=== PATIENT | male | born 1955 | race Caucasian/White ===

== ENCOUNTER → 2016-04-15 | Outpatient (CLI) | payer OTHER | END | disposition home or self-care (01) | LOC: C.CPL 16:28 | DX: M75.122 Complete rotator cuff tear or rupture of left shoulder, not specified as traumatic (principal) ==

== ENCOUNTER 2017-04-02 16:54 | Inpatient (IN) | payer OTHER ==
[~2017-04-02] VITALS: Ht 180.3 cm; Wt 90.7 kg
[~2017-04-02 16:54] MED LIST changes: -LISI-461 PO; -OXYC-57 PO
[2017-04-02] MEDS ORDERED: OXYC-57 PO (16:58)
[2017-04-02] MEDS ORDERED: LISI-461 PO (16:58)
[2017-04-02] MEDS ORDERED: VANCOMYCIN 1GM/270ML NSS ONE (17:01)
[2017-04-02 17:06] VITALS: BP 140/87; PULSE 105; TEMP 36.8; O2SAT 100; Ht 180.3 cm; Wt 90.7 kg
[2017-04-02] MEDS ORDERED: ONDANSETRON INJ 2 MG/ML 2 ML VIAL IV PRN ×2 (17:15→19:30)
[2017-04-02] MEDS ORDERED: NALOXONE HCL 0.4 MG/1 ML VIAL/CARP IV PRN (17:15)
[2017-04-02] MEDS ORDERED: ATROPINE SULFATE 0.1 MG/ML 5ML SYR IV PRN (17:15)
[2017-04-02] MEDS ORDERED: LABETALOL HCL IV 5 MG/ML 20ML IV PRN (17:15)
[2017-04-02] MEDS ORDERED: FLUMAZENIL 0.1 MG/1 ML 10 ML VIAL IV PRN (17:15)
[2017-04-02] MEDS ORDERED: MEPERIDINE HCL 25 MG/ML CARP IV PRN (17:15)
[2017-04-02] MEDS ORDERED: PHENYLEPHRINE 100MCG/ML 5ML SYR IV PRN (17:15)
[2017-04-02] MEDS ORDERED: EpHEDrine SULFATE INJ 50 MG/ML AMP IV PRN (17:15)
[2017-04-02] MEDS ORDERED: PROPOFOL IV EMULSION 10 MG/ML 20 ML VIAL IV ONE (17:19)
[2017-04-02] MEDS ORDERED: ROCURONIUM BROMIDE 10 MG/ML 5 ML VIAL IV ONE (17:19)
[2017-04-02] MEDS ORDERED: LIDOCAINE HCL 2% 2 ML VIAL (20MG/ML) ONE (17:19)
[2017-04-02] MEDS ORDERED: FENTANYL CITRATE INJ 50 MCG/1 ML 2 ML VIAL ONE (17:20)
[2017-04-02] MEDS ORDERED: MIDAZOLAM HCL 1 MG/ML 2ML VIAL ONE (17:20)
[2017-04-02 17:36] LABS: CALCIUM 9.5 mg/dl (8.5-10.1); CREATININE 0.84 mg/dl (0.60-1.40)
[2017-04-02] MEDS ORDERED: ONDANSETRON INJ 2 MG/ML 2 ML VIAL ONE (17:36)
[2017-04-02] MEDS ORDERED: DEXAMETHASONE SOD INJ 4 MG/ML VIAL ONE (17:36)
[2017-04-02] MEDS ORDERED: VANCOMYCIN HCL 1000MG/20ML VIAL ONE (17:49)
[2017-04-02] MEDS ORDERED: BACITRACIN 50000 UNIT VIAL ONE ×2 (17:49→18:35)
[2017-04-02] MEDS ORDERED: VANCOMYCIN CONSULT ACTIVE PRN (19:30)
[2017-04-02] MEDS ORDERED: NO NSAIDS SCH (19:30)
[2017-04-02] MEDS ORDERED: MAGNESIUM HYDROXIDE SUSP 30 ML UDC PO PRN (19:30)
[2017-04-02] MEDS: FENTANYL CITRATE INJ 50 MCG/1 ML 2 ML VIAL IV PRN ×4 (19:30→19:45)
[2017-04-02] MEDS ORDERED: ALUMINUM/MAGNESIUM SUSP 30 ML UDC PO PRN (19:30)
--- NOTE | 2017-04-02 19:30 | [facility] Post Operative Brief Note ---
Immediate Operative Summary Operative Date Apr 02, 2017. Pre-Operative Diagnosis Left shoulder acute post operative infection Post-Operative Diagnosis Left shoulder acute post operative infection Procedure(s) Performed Left Shoulder Incision and Drainage; Subacromial Debridement,vancomycin antibiotic bead placement Surgeon Dr. Aren Vanegas Financial Intern Surgeon(s) none Estimated Blood Loss 20cc Findings infection in subdeltoid subacromial space with intact repair and graft Specimens Micro: (gram stain, aerobic, anaerobic) 1. Left shoulder drainage Drains 2 hemovac Anesthesia general Complication(s) None Disposition Recovery Room / PACU
[2017-04-02] MEDS: HYDROmorphone INJ 2 MG/ML SYR/VIAL IV PRN ×2 (19:50→19:55)
--- NOTE | 2017-04-02 19:53 | Anesthesiology Progress Note ---
Anesthesia Post Op Note Date & Time Apr 02, 2017 at 19:53 Vital Signs Pain Intensity: 3 Vital Signs Past 12 Hours Date Time Temp Pulse Resp B/P (MAP) Pulse Ox O2 Delivery O2 Flow Rate FiO2 04/02/17 19:40 157/100 04/02/17 19:38 88 22 100 04/02/17 19:38 88 22 04/02/17 19:37 84 19 04/02/17 19:37 85 19 100 04/02/17 19:36 139/98 04/02/17 19:32 85 17 04/02/17 19:32 83 17 100 04/02/17 19:31 146/108 04/02/17 19:27 85 144 04/02/17 19:27 85 144 100 04/02/17 19:26 135/105 04/02/17 19:22 90 24 154/97 100 04/02/17 19:22 36.7 88 20 154/97 100 Oxymask 10 04/02/17 19:22 91 24 04/02/17 17:06 36.8 105 20 140/87 100 Room Air Notes Mental Status: alert / awake / arousable, participated in evaluation Pt Amnestic to Procedure: Yes Nausea / Vomiting: adequately controlled Pain: adequately controlled Airway Patency, RR, SpO2: stable & adequate BP & HR: stable & adequate Hydration State: stable & adequate Anesthetic Complications: no major complications apparent
[2017-04-02 20:25] VITALS: BP 142/92; PULSE 86; TEMP 37.1; O2SAT 100
--- NOTE | 2017-04-02 20:31 | OPERATIVE REPORT ---
DATE OF OPERATION: 04/02/2017 INDICATION FOR PROCEDURE: The patient is a 61-year-old male who had a work related injury. He sustained a rotator cuff tear to his left shoulder. This is his third rotator cuff surgery. He has had 2 previous rotator cuff repair surgeries in the past. Ongoing pain and MRI demonstrating he had a recurrent rotator cuff tear and decision was to proceed with a arthroscopic and mini open repair of the rotator cuff using augmentation using an Arthrex human dermal skin graft. The patient was doing well until today when he was picking at his incision and pus came out of his incision. His exam demonstrated that his longitudinal incision where we did the mini open part of the repair was draining purulent bloody drainage and this was cultured in the office and the patient was scheduled for urgent incision and drainage. PREOPERATIVE DIAGNOSIS: Left shoulder acute postoperative infection status post recent rotator cuff repair approximately 10 days ago. POSTOPERATIVE DIAGNOSES: Same with infection extending into the subacromial and subdeltoid space with intact repair. PROCEDURE: Left shoulder incision, drainage, irrigation, debridement, subacromial subdeltoid infection with placement of antibiotic beads and closure over drains. SURGEON: Aren Vanegas MD. ACID FILLER: None. ANESTHESIA: General. DESCRIPTION OF THE PROCEDURE: The patient was taken to the operating room, anesthetized under general anesthetic. He was positioned on a 40 degree beach chair position with a towel roll in the medial border of his left scapula. His head was placed on a foam headrest. He had all extremities well padded. His shoulder exam demonstrated that he had erythema around his lateral incision only and there was some drainage around the upper aspect of the incision. All the other incisions were well healed. The left shoulder was then sterilely prepped using Betadine scrub and paint. He was sterilely draped. The incision was opened up and there was purulent drainage extending deep into the deltoid. There was a small rent in the upper deltoid. This was followed down into the subacromial space. We did gain access to the subacromial space and got deep culture. At this time we suctioned out the pus and fluid collection. There was very large collection of pus in the subacromial space. The old Vicryl sutures were removed from the deltoid split and the deltoid split was opened up wide. The sutures in the subcutaneous tissues were also removed. The wound was then copiously irrigated. Some fibrous debris was removed from the subacromial space. I used digital palpation to sweep the subacromial space, made sure there were no loculations of any fluid. I inspected the repair. The repair was completely intact, all anchors were intact and all sutures were intact. The graft was completely intact and could not clearly express any pus from within the joint out through the graft. The decision was to try to preserve the repair. The subacromial space was then copiously irrigated with a total of 12 liters of antibiotic solution with bacitracin. We used clean retractor to suction at the last irrigation. At this time, we did mix Stimulan antibiotic beads with vancomycin. We used 10 mL total for the mixture but we used about 6 of the 10 mL and we tried to pack them over the tendon repair medial to tendon repair under the AC joint anteriorly and posteriorly in the subdeltoid region. I did place 2 Hemovac drains and brought them posteriorly out of the joint. I placed them in subdeltoid region. I closed the deltoid with [id number] #1 Vicryl antibiotic impregnated sutures. The subcutaneous tissues were closed with 2-0 antibiotic impregnated sutures and skin was closed with 2-0 nylon vertical mattress sutures. Adaptic, sterile dressings were applied, ABDs, foam tape and the patient had about 20 mL of blood loss. He tolerated the procedure well. I attest to the content of the Intraoperative Record and any orders documented therein. Any exception s are noted below.
[2017-04-02] MEDS ORDERED: VANCOMYCIN INJ 1,000 MG in SODIUM CHLORIDE 0.9% 250ML 250 ML IV SCH (21:00)
[2017-04-02 21:03] VITALS: BP 129/85; PULSE 82; TEMP 37.1; O2SAT 98
[2017-04-02 21:25] VITALS: BP 128/86; PULSE 77; TEMP 37.1; O2SAT 97
[2017-04-02] MEDS: D5W AND 1/2NSS + 20MEQ KCL 1,000 ML IV SCH (21:31)
[2017-04-02] MEDS: DOCUSATE SODIUM 100 MG CAP PO SCH (21:31)
[2017-04-02] MEDS: VANCOMYCIN INJ 1,250 MG in SODIUM CHLORIDE 0.9% 250ML 250 ML IV SCH (21:31)
[2017-04-02] MEDS: ACETAMINOPHEN 500 MG TAB PO SCH (21:32)
[2017-04-02] MEDS: BuPROPion XL 150 MG TABCR PO SCH (21:33)
[2017-04-02] MEDS: OXYCODONE HCL IR 5 MG TAB (IMMEDIATE RELEASE) PO PRN (21:36)
[2017-04-02 22:25] VITALS: BP 120/79; PULSE 77; TEMP 37; O2SAT 97
[2017-04-02 23:22] VITALS: BP 133/82; PULSE 69; TEMP 36.8; O2SAT 98
[2017-04-03 03:41] VITALS: BP 119/78; PULSE 66; TEMP 36.7; O2SAT 99
[2017-04-03] MEDS: ACETAMINOPHEN 500 MG TAB PO SCH ×3 (05:22→21:30)
[2017-04-03] MEDS ORDERED: NURSING DECISION MEDICATION ORDER SCH (05:30)
[2017-04-03 07:17] VITALS: BP 133/86; PULSE 65; TEMP 36.6; O2SAT 98
[2017-04-03 07:24] LABS: HEMATOCRIT 35.9 % (42-52); HEMOGLOBIN 12.2 g/dL (14.0-18.0); MEAN CELL VOLUME 101.1 fL (80-100); MEAN CORPUSCULAR HEMOGLOBIN 34.4 pg (25-34); MEAN PLATELET VOLUME 10.8 fL (7.4-10.4); PLATELET COUNT 188 K/uL (130-400); RED CELL DISTRIBUTION WIDTH CV 13.3 % (11.5-14.5); RED CELL DISTRIBUTION WIDTH SD 49.7 fL (36.4-46.3); WHITE BLOOD COUNT 10.07 K/uL (4.8-10.8)
[2017-04-03 07:42] LABS: CALCIUM 9.1 mg/dl (8.5-10.1); CREATININE 0.77 mg/dl (0.60-1.40); POTASSIUM 4.5 mmol/L (3.5-5.1)
--- NOTE | 2017-04-03 08:30 | Orthopedic Progress Note ---
Orthopedic Progress Note Date of Service Apr 03, 2017. Subjective Post OP Day: 1 Reports: feeling well, pain controlled w PO medications, Denies: complaints, chest pain, SOB, nausea / vomiting, light headedness, calf pain Objective N/V intact, capillary refill less than 2 sec., dressing C/D/I, A&O x3 Sling in tact, fingers mobile. Date Time Temp Pulse Resp B/P (MAP) Pulse Ox O2 Delivery O2 Flow Rate FiO2 04/03/17 07:17 36.6 65 16 133/86 (102) 98 Room Air 04/03/17 03:41 36.7 66 16 119/78 (92) 99 Room Air 04/02/17 23:25 Room Air 04/02/17 23:22 36.8 69 18 133/82 (99) 98 Room Air 04/02/17 22:25 37.0 77 18 120/79 (93) 97 Room Air 04/02/17 21:25 37.1 77 16 128/86 (100) 97 Room Air 04/02/17 21:03 37.1 82 16 129/85 (100) 98 Nasal Cannula 2.0 04/02/17 20:25 100 Nasal Cannula 2.0 04/02/17 20:25 37.1 86 17 142/92 (109) 100 Nasal Cannula 2.0 04/02/17 20:25 100 Nasal Cannula 2.0 04/02/17 20:11 90 15 04/02/17 20:11 90 15 144/89 99 04/02/17 20:06 84 17 99 04/02/17 20:06 84 17 04/02/17 20:05 140/92 04/02/17 20:02 138/88 04/02/17 20:01 86 14 04/02/17 20:01 86 14 100 04/02/17 20:00 171/101 04/02/17 19:56 86 11 144/100 100 04/02/17 19:56 86 11 04/02/17 19:54 36.7 88 18 138/88 (100) 100 Nasal Cannula 2 04/02/17 19:52 152/102 04/02/17 19:51 89 18 04/02/17 19:51 88 18 156/106 100 04/02/17 19:46 90 19 04/02/17 19:46 88 19 147/101 100 04/02/17 19:41 85 15 04/02/17 19:41 85 15 100 04/02/17 19:40 157/100 04/02/17 19:38 88 22 100 04/02/17 19:38 88 22 04/02/17 19:37 84 19 04/02/17 19:37 85 19 100 04/02/17 19:36 139/98 04/02/17 19:32 85 17 04/02/17 19:32 83 17 100 04/02/17 19:31 146/108 04/02/17 19:27 85 144 04/02/17 19:27 85 144 100 04/02/17 19:26 135/105 04/02/17 19:22 90 24 154/97 100 04/02/17 19:22 36.7 88 20 154/97 100 Oxymask 10 04/02/17 19:22 91 24 04/02/17 17:06 36.8 105 20 140/87 100 Room Air Laboratory Results 24 Hours: Test 04/03/17 06:54 Hematocrit 35.9 % Hemoglobin 12.2 g/dL Assessment & Plan Assessment: POD #1, Left shoulder I&D subacromial and subdeltoid infection, placement of antibx beads and closure over drains...s/p open left RCR with grafting 2 wks ago. Plan: Await cultures, gram stain gram pos. cocci. ID consulted, await input...On vanco for now. Disposition - home likely w home anibx Inhouse Planning Pain Management: PO Tylenol, Oxy IR Discharge Planning Discharge Planning: home
--- NOTE | 2017-04-03 08:59 | HISTORY & PHYSICAL EXAMINATION ---
DATE OF ADMISSION: 04/02/2017 CHIEF COMPLAINT: Increased pain and drainage, left shoulder. HISTORY OF PRESENT ILLNESS: This is a 61-year-old male patient of Dr. Vanegas'ivan who recently underwent an open rotator cuff repair with placement of graft approximately 2 weeks ago. Over the past 24 hours, the patient has noticed a significant increase in pain and drainage from the incisional area. He reported the office where it was determined that this was a probable infection. He will be admitted to [facility] for an I&D of the incisional area. PAST MEDICAL HISTORY: Hypertension, anxiety, carpal tunnel, history of seizure disorder, osteoarthritis, spine problems, sciatica. SOCIAL HISTORY: He is a long-life smoker, but quit in 2004. Approximately 8 drinks per week. PAST SURGICAL HISTORY: Two rotator cuff repairs on the left shoulder, left knee surgery, and left wrist surgery. MEDICATIONS: Wellbutrin 150 mg b.i.d., lisinopril 10 mg daily, Meloxicam 15 mg daily, Percocet 5/325 1-2 tablets every 4-6 hours p.r.n. ALLERGIES: INCLUDE PENICILLIN. FAMILY HISTORY: Noncontributory. REVIEW OF SYSTEMS: Most recently increased pain and drainage from his left shoulder incisional site. Otherwise, denies any shortness of breath, chest pain, nausea, vomiting or any other joint complaints. PHYSICAL EXAMINATION: GENERAL: This is a well-developed, well-nourished 61-year-old male in no acute distress. He is alert and oriented x3 and pleasant. HEENT: Normocephalic, atraumatic. Extraocular motions are intact. Pupils are equal and reactive to light. HEART: Regular rate and rhythm, no murmurs appreciated. LUNGS: Clear. ABDOMEN: Soft and nontender. Bowel sounds are present. EXTREMITIES: Left shoulder reveals some purulent drainage from the incisional site. There is mild erythema around the area. He does have painful range of motion. Neurologically and neurovascularly, he is intact in his left upper extremity. DIAGNOSES: Probable left shoulder infection status post open rotator cuff repair with grafting approximately 2 weeks ago. He also has a history of hypertension, anxiety, carpal tunnel, seizure disorder, osteoarthritis, spine problems, sciatica. LABORATORY STUDIES: On admission white cells were 10.07. Sodium was 132. He was afebrile. PLAN: The patient will be admitted for an I&D of the left shoulder incisional area. We will continue his preadmission medications and we will follow with him for his hospital course. ID will be consulted, currently on eileen. INES
--- NOTE | 2017-04-03 09:02 | Pharmacy Progress Note ---
Pharmacy Antibiotic Consult Date of Service: Apr 03, 2017. Pharmacy Dosing Scope Pharmacy is consulted to initiate Vancomycin IV dosing therapy, order appropriate labs and adjust drug dose/frequency. Subjective The patient is a 61 year old male admitted on Apr 02, 2017 at 19:42. Objective Height (Feet): 5 Height (Inches): 11.00 Weight (Kilograms): 90.720 Lab Results (24hrs): Test 04/02/17 17:04 04/02/17 17:10 04/03/17 06:54 Sodium Level 134 mmol/L (136-145) 132 mmol/L (136-145) Potassium Level 4.0 mmol/L (3.5-5.1) 4.5 mmol/L (3.5-5.1) Chloride Level 99 mmol/L (98-107) 100 mmol/L (98-107) Carbon Dioxide Level 24 mmol/L (21-32) 26 mmol/L (21-32) Anion Gap 11.0 mmol/L (3-11) 6.0 mmol/L (3-11) Blood Urea Nitrogen 16 mg/dl (7-18) 14 mg/dl (7-18) Creatinine 0.84 mg/dl (0.60-1.40) 0.77 mg/dl (0.60-1.40) Est Creatinine Clear Calc Drug Dose 109.1 ml/min 119.0 ml/min Estimated GFR () 111.1 115.1 Estimated GFR (Non- 95.8 99.3 BUN/Creatinine Ratio 19.1 (10-20) 18.4 (10-20) Random Glucose 104 mg/dl (70-99) 155 mg/dl (70-99) Calcium Level 9.5 mg/dl (8.5-10.1) 9.1 mg/dl (8.5-10.1) Hepatitis C Antibody Screen NEG (NEG) Urine Color DK YELLOW Urine Appearance CLOUDY (CLEAR) Urine pH 5.5 (4.5-7.5) Urine Specific [place] 1.029 (1.000-1.030) Urine Protein 1+ (NEG) Urine Glucose (UA) NEG (NEG) Urine Ketones 1+ (NEG) Urine Occult Blood NEG (NEG) Urine Nitrite NEG (NEG) Urine Bilirubin NEG (NEG) Urine Urobilinogen NEG (NEG) Urine Leukocyte Esterase TRACE (NEG) Urine WBC (Auto) 1-5 /hpf (0-5) Urine RBC (Auto) 0-4 /hpf (0-4) Urine Hyaline Casts (Auto) 10-30 /lpf (0-5) Urine Epithelial Cells (Auto) 10-20 /lpf (0-5) Urine Bacteria (Auto) NEG (NEG) White Blood Count 10.07 K/uL (4.8-10.8) Red Blood Count 3.55 M/uL (4.7-6.1) Hemoglobin 12.2 g/dL (14.0-18.0) Hematocrit 35.9 % (42-52) Mean Corpuscular Volume 101.1 fL (80-100) Mean Corpuscular Hemoglobin 34.4 pg (25-34) Mean Corpuscular Hemoglobin Concent 34.0 g/dl (32-36) RDW Standard Deviation 49.7 fL (36.4-46.3) RDW Coefficient of Variation 13.3 % (11.5-14.5) Platelet Count 188 K/uL (130-400) Mean Platelet Volume 10.8 fL (7.4-10.4) Assessment & Plan Pt is a 61yo M s/p left shoulder I&D. WBC WNL and afebrile. Pt population p' kinetics: t1/2=6.8hrs, ke=0.102. Vanco regimen started by overnight pharmacist. Vanco: * Vanco 1000mg (11mg/kg) given pre-op. * Vanco 1250mg (14mg/kg) q10 * Trough ordered for 04/04/17 @ 0330 * Goal trough until NAY, c/s's result: 15-20mcg/mL Pharmacy will continue to follow and will adjust dose/frequency as necessary. Thank you
[2017-04-03] MEDS: MULTIVITAMIN TAB PO SCH (09:09)
[2017-04-03] MEDS: VANCOMYCIN INJ 1,250 MG in SODIUM CHLORIDE 0.9% 250ML 250 ML IV SCH ×2 (09:09→18:24)
[2017-04-03] MEDS: DOCUSATE SODIUM 100 MG CAP PO SCH ×2 (09:09→21:24)
[2017-04-03] MEDS: LISINOPRIL 10 MG TAB PO SCH (09:09)
[2017-04-03] MEDS: BuPROPion XL 150 MG TABCR PO SCH ×2 (09:13→21:24)
--- NOTE | 2017-04-03 10:53 | Medical Consult ---
Consultation Date of Consultation: Apr 03, 2017. Attending Physician: Aren Vanegas M.D. Reason for Consultation: Medical management of infection History of Present Illness 61-year-old male in reasonable health underwent rotator cuff repair recently without obvious complications. Patient did well until 1-2 day prior to admission when he picked a scab office shoulder and then had substantial amount of drainage from that area. He was admitted to the hospital and has now undergone debridement with finding of evidence of infection. G stain shows Gram -positive cocci, cultures are pending. Patient currently on vancomycin. He denies any significant fever or chills. No other new systemic complaints. Left shoulder pain controlled postoperatively. Past Medical/Surgical History PAST MEDICAL HISTORY: Hypertension, anxiety, carpal tunnel, history of seizure disorder, osteoarthritis, spine problems, sciatica. PAST SURGICAL HISTORY: Two rotator cuff repairs on the left shoulder, left knee surgery, and left wrist surgery. Family History Noncontributory Social History Smoking Status: Former Smoker Allergies Coded Allergies: Penicillin G (Verified Allergy, Intermediate, hives, 04/02/17) Dust (Verified Allergy, Unknown, `, 04/02/17) Current Inpatient Medications Current Inpatient Medications Medications (Trade) Dose Ordered Sig/Jennifer Route Start Time Stop Time Status Last Admin Dose Admin Diphenhydramine HCl (Benadryl Cap) 25 mg Q8 PRN PO 04/02/17 19:30 05/02/17 19:29 Ondansetron HCl (Zofran Inj) 4 mg Q6H PRN IV 04/02/17 19:30 05/02/17 19:29 Al Hydroxide/Mg Hydroxide (Maalox Susp) 30 ml Q4H PRN PO 04/02/17 19:30 05/02/17 19:29 Potassium Chloride/Dextrose/ Sod Cl 1,000 ml @ 100 mls/hr Q10H IV 04/02/17 21:00 05/02/17 20:59 04/02/17 21:31 100 MLS/HR Miscellaneous Medication (No Nsaids) 1 ea UD N/A 04/02/17 19:30 05/02/17 19:29 Oxycodone HCl (Roxicodone Immediate Rel Tab) `1-2 TABS FOR PAIN `1 TAB... Q4H PRN PO 04/02/17 19:30 04/16/17 19:29 04/02/17 21:36 10 MG Acetaminophen (Tylenol Tab) 1,000 mg Q8 PO 04/02/17 22:00 05/02/17 21:59 04/03/17 05:22 1,000 MG Magnesium Hydroxide (Milk Of Magnesia Susp) 30 ml Q6H PRN PO 04/02/17 19:30 05/02/17 19:29 Docusate Sodium (coLACE CAP) 100 mg BID PO 04/02/17 21:00 05/02/17 20:59 04/03/17 09:09 100 MG Multivitamins (Multivitamin Tab) 1 tab DAILY PO 04/03/17 09:00 05/03/17 08:59 04/03/17 09:09 1 TAB Miscellaneous Information (Consult) 1 ea UD PRN N/A 04/02/17 19:30 05/02/17 19:29 Bupropion HCl (Wellbutrin-Xl Tab) 150 mg BID PO 04/02/17 21:00 05/02/17 20:59 04/03/17 09:13 150 MG Lisinopril (Zestril Tab) 10 mg DAILY PO 04/03/17 09:00 05/03/17 08:59 04/03/17 09:09 10 MG Vancomycin HCl 1250 mg/Sodium Chloride 275 ml @ 125 mls/hr Q10H IV 04/02/17 22:00 04/12/17 21:59 04/03/17 09:09 125 MLS/HR Review of Systems All systems were reviewed and are negative except as per HPI Physical Exam Date Time Temp Pulse Resp B/P (MAP) Pulse Ox O2 Delivery O2 Flow Rate FiO2 04/03/17 07:17 36.6 65 16 133/86 (102) 98 Room Air 04/03/17 03:41 36.7 66 16 119/78 (92) 99 Room Air 04/02/17 23:25 Room Air 04/02/17 23:22 36.8 69 18 133/82 (99) 98 Room Air 04/02/17 22:25 37.0 77 18 120/79 (93) 97 Room Air 04/02/17 21:25 37.1 77 16 128/86 (100) 97 Room Air 04/02/17 21:03 37.1 82 16 129/85 (100) 98 Nasal Cannula 2.0 04/02/17 20:25 100 Nasal Cannula 2.0 18 20:25 37.1 86 17 142/92 (109) 100 Nasal Cannula 2.0 04/02/17 20:25 100 Nasal Cannula 2.0 18 20:11 90 15 18 20:11 90 15 144/89 99 18 20:06 84 17 99 18 20:06 84 17 18 20:05 140/92 18 20:02 138/88 04/02/17 20:01 86 14 18 20:01 86 14 100 04/02/17 20:00 171/101 18 19:56 86 11 144/100 100 18 19:56 86 11 18 19:54 36.7 88 18 138/88 (100) 100 Nasal Cannula 2 04/02/17 19:52 152/102 18 19:51 89 18 18 19:51 88 18 156/106 100 18 19:46 90 19 18 19:46 88 19 147/101 100 18 19:41 85 15 18 19:41 85 15 100 18 19:40 157/100 18 19:38 88 22 100 18 19:38 88 22 18 19:37 84 19 18 19:37 85 19 100 18 19:36 139/98 18 19:32 85 17 1718 19:32 83 17 100 1718 19:31 146/108 1718 19:27 85 144 1718 19:27 85 144 100 18 19:26 135/105 1718 19:22 90 24 154/97 100 1718 19:22 36.7 88 20 154/97 100 Oxymask 10 18 19:22 91 24 1718 17:06 36.8 105 20 140/87 100 Room Air General Appearance: WD/WN, no apparent distress Head: normocephalic, atraumatic Eyes: normal inspection, EOMI, sclerae normal ENT: normal ENT inspection, hearing grossly normal, pharynx normal Neck: supple, no adenopathy, thyroid normal, trachea midline Respiratory/Chest: chest non-tender, lungs clear, normal breath sounds, no respiratory distress Cardiovascular: regular rate, rhythm, no gallop, no murmur Abdomen/GI: normal bowel sounds, non tender, soft, no organomegaly Back: normal inspection, no CVA tenderness Extremities/Musculoskelatal: normal inspection, no calf tenderness, normal capillary refill Neurologic/Psych: alert, oriented x 3 Skin: normal color, warm/dry, no rash, + pertinent finding (Surgical dressing intact) Lymphatic: no adenopathy Laboratory Results Date/Time Source Procedure Growth Status 04/02/17 18:20 Drainage-Deep Shoulder, Left Gram Stain - Final Resulted 04/02/17 18:20 Drainage-Deep Shoulder, Left Bacterial Culture Pending Resulted 04/02/17 15:40 Fine Needle Aspirate Shoulder, Left Gram Stain - Final Resulted 04/02/17 15:40 Fine Needle Aspirate Shoulder, Left Bacterial Culture Pending Resulted Last 24 Hours Test 04/02/17 17:04 04/02/17 17:10 04/03/17 06:54 Sodium Level 134 mmol/L 132 mmol/L Potassium Level 4.0 mmol/L 4.5 mmol/L Chloride Level 99 mmol/L 100 mmol/L Carbon Dioxide Level 24 mmol/L 26 mmol/L Anion Gap 11.0 mmol/L 6.0 mmol/L Blood Urea Nitrogen 16 mg/dl 14 mg/dl Creatinine 0.84 mg/dl 0.77 mg/dl Est Creatinine Clear Calc Drug Dose 109.1 ml/min 119.0 ml/min Estimated GFR () 111.1 115.1 Estimated GFR (Non- 95.8 99.3 BUN/Creatinine Ratio 19.1 18.4 Random Glucose 104 mg/dl 155 mg/dl Calcium Level 9.5 mg/dl 9.1 mg/dl Hepatitis C Antibody Screen NEG Urine Color DK YELLOW Urine Appearance CLOUDY Urine pH 5.5 Urine Specific [place] 1.029 Urine Protein 1+ Urine Glucose (UA) NEG Urine Ketones 1+ Urine Occult Blood NEG Urine Nitrite NEG Urine Bilirubin NEG Urine Urobilinogen NEG Urine Leukocyte Esterase TRACE Urine WBC (Auto) 1-5 /hpf Urine RBC (Auto) 0-4 /hpf Urine Hyaline Casts (Auto) 10-30 /lpf Urine Epithelial Cells (Auto) 10-20 /lpf Urine Bacteria (Auto) NEG White Blood Count 10.07 K/uL Red Blood Count 3.55 M/uL Hemoglobin 12.2 g/dL Hematocrit 35.9 % Mean Corpuscular Volume 101.1 fL Mean Corpuscular Hemoglobin 34.4 pg Mean Corpuscular Hemoglobin Concent 34.0 g/dl RDW Standard Deviation 49.7 fL RDW Coefficient of Variation 13.3 % Platelet Count 188 K/uL Mean Platelet Volume 10.8 fL Assessment & Plan 61-year-old male with infection of left shoulder following repair of rotator cuff tear with graft placement. Vancomycin appropriate therapy given Gram- positive seen on Gram stain, and final cultures should be available in the next 24-48 hours. I suspect patient will require prolonged IV therapy. Choice of antibiotic will depend on culture results. Will follow.
[2017-04-03] MEDS: D5W AND 1/2NSS + 20MEQ KCL 1,000 ML IV SCH ×2 (11:58→23:36)
[2017-04-03 12:07] VITALS: BP 124/80; PULSE 83; TEMP 36.7; O2SAT 100
[2017-04-03 16:02] VITALS: BP 122/79; PULSE 94; TEMP 36.7; O2SAT 98
[2017-04-03] MEDS ORDERED: NURSING VERBAL MED ORDER ONE (19:00)
[2017-04-03] MEDS: ZOLPIDEM TARTRATE 5 MG TAB PO PRN (21:24)
[2017-04-03 22:55] VITALS: BP 120/77; PULSE 97; TEMP 37.3; O2SAT 99
[2017-04-03] MEDS: OXYCODONE HCL IR 5 MG TAB (IMMEDIATE RELEASE) PO PRN (23:37)
[2017-04-04] MEDS ORDERED: VANCOMYCIN TROUGH ONE (03:30)
[2017-04-04] MEDS: VANCOMYCIN INJ 1,250 MG in SODIUM CHLORIDE 0.9% 250ML 250 ML IV SCH (03:57)
[2017-04-04 04:11] LABS: HEMATOCRIT 37.9 % (42-52); HEMOGLOBIN 12.9 g/dL (14.0-18.0); MEAN CELL VOLUME 101.1 fL (80-100); MEAN CORPUSCULAR HEMOGLOBIN 34.4 pg (25-34); MEAN PLATELET VOLUME 10.5 fL (7.4-10.4); PLATELET COUNT 205 K/uL (130-400); RED CELL DISTRIBUTION WIDTH CV 13.2 % (11.5-14.5); RED CELL DISTRIBUTION WIDTH SD 49.2 fL (36.4-46.3); WHITE BLOOD COUNT 7.22 K/uL (4.8-10.8)
[2017-04-04 04:29] LABS: CALCIUM 8.9 mg/dl (8.5-10.1); CREATININE 0.95 mg/dl (0.60-1.40)
[2017-04-04] MEDS: ACETAMINOPHEN 500 MG TAB PO SCH ×3 (05:14→21:35)
[2017-04-04] MEDS ORDERED: NURSING DECISION MEDICATION ORDER SCH (05:15)
[2017-04-04 07:07] VITALS: BP 129/80; PULSE 85; TEMP 37.2; O2SAT 97
--- NOTE | 2017-04-04 08:15 | Progress Note ---
Orthopedic SOAP Note Subjective Date of Service: Apr 04, 2017. Reports: feeling well, pain controlled w PO medications Objective incision still with some erythema but improved,minimal drainage Date Time Temp Pulse Resp B/P (MAP) Pulse Ox O2 Delivery O2 Flow Rate FiO2 04/04/17 07:07 37.2 85 18 129/80 (96) 97 Room Air 04/03/17 23:35 Room Air 04/03/17 22:55 37.3 97 16 120/77 (91) 99 Room Air 04/03/17 21:04 Room Air 04/03/17 16:02 36.7 94 18 122/79 (93) 98 Room Air 04/03/17 12:07 36.7 83 16 124/80 (95) 100 Room Air 04/03/17 11:19 Room Air Laboratory Results 24 Hours: Test 04/04/17 03:59 Hematocrit 37.9 % Hemoglobin 12.9 g/dL Assessment POD #2, Left shoulder I&D subacromial and subdeltoid infection, placement of antibx beads and closure over drains...s/p open left RCR with grafting 2 wks ago.staph aureus angel sensitive Plan On vanco for now.abx choice per id but will need 6 weeks iv abx.and possibly suppressive antibiotics for total of 6 months until rotator cuff heals. Disposition - home likely w home anibx
[2017-04-04] MEDS: DOCUSATE SODIUM 100 MG CAP PO SCH ×2 (11:55→20:40)
[2017-04-04] MEDS: LISINOPRIL 10 MG TAB PO SCH (11:55)
[2017-04-04] MEDS: MULTIVITAMIN TAB PO SCH (11:55)
[2017-04-04] MEDS: BuPROPion XL 150 MG TABCR PO SCH ×2 (11:55→20:40)
[2017-04-04] MEDS ORDERED: VANCOMYCIN INJ 1,250 MG in SODIUM CHLORIDE 0.9% 250ML 250 ML IV SCH (12:00)
--- NOTE | 2017-04-04 14:17 | Infectious Disease Progress Nt ---
Progress Note Date of Service Apr 04, 2017. Subjective Pt evaluation today including: conversation w/ patient, physical exam, chart review, lab review, review of studies, conversation w/ regulatory consultant, review of inpatient medication list Patient feeling better. Offers no new complaints. Remains afebrile. All cultures growing methicillin sensitive Staph aureus. All Other Systems: Reviewed and Negative Medications Current Inpatient Medications Medications (Trade) Dose Ordered Sig/Jennifer Route Start Time Stop Time Status Last Admin Dose Admin Diphenhydramine HCl (Benadryl Cap) 25 mg Q8 PRN PO 04/02/17 19:30 05/02/17 19:29 Ondansetron HCl (Zofran Inj) 4 mg Q6H PRN IV 04/02/17 19:30 05/02/17 19:29 Al Hydroxide/Mg Hydroxide (Maalox Susp) 30 ml Q4H PRN PO 04/02/17 19:30 05/02/17 19:29 Potassium Chloride/Dextrose/ Sod Cl 1,000 ml @ 100 mls/hr Q10H IV 04/02/17 21:00 05/02/17 20:59 04/03/17 23:36 100 MLS/HR Miscellaneous Medication (No Nsaids) 1 ea UD N/A 04/02/17 19:30 05/02/17 19:29 Oxycodone HCl (Roxicodone Immediate Rel Tab) `1-2 TABS FOR PAIN `1 TAB... Q4H PRN PO 04/02/17 19:30 04/16/17 19:29 04/03/17 23:37 10 MG Acetaminophen (Tylenol Tab) 1,000 mg Q8 PO 04/02/17 22:00 05/02/17 21:59 04/04/17 05:14 1,000 MG Magnesium Hydroxide (Milk Of Magnesia Susp) 30 ml Q6H PRN PO 04/02/17 19:30 05/02/17 19:29 Docusate Sodium (coLACE CAP) 100 mg BID PO 04/02/17 21:00 05/02/17 20:59 04/04/17 11:55 100 MG Multivitamins (Multivitamin Tab) 1 tab DAILY PO 04/03/17 09:00 05/03/17 08:59 04/04/17 11:55 1 TAB Miscellaneous Information (Consult) 1 ea UD PRN N/A 04/02/17 19:30 05/02/17 19:29 Bupropion HCl (Wellbutrin-Xl Tab) 150 mg BID PO 04/02/17 21:00 05/02/17 20:59 04/04/17 11:55 150 MG Lisinopril (Zestril Tab) 10 mg DAILY PO 04/03/17 09:00 05/03/17 08:59 04/04/17 11:55 10 MG Zolpidem Tartrate (Ambien Tab) 5 mg HSZ PRN PO 04/03/17 19:15 05/03/17 19:14 04/03/17 21:24 5 MG Vancomycin HCl 1250 mg/Sodium Chloride 275 ml @ 125 mls/hr Q8H IV 04/04/17 12:00 04/12/17 15:59 04/04/17 12:00 125 MLS/HR Heparin Sodium (Porcine) (Heparin 10 Unit/ ml 5 ml Flush) 5 ml PRN PRN FLUSH 04/04/17 13:15 05/04/17 13:14 Objective Vital Signs Date Time Temp Pulse Resp B/P (MAP) Pulse Ox O2 Delivery O2 Flow Rate FiO2 04/04/17 08:05 Room Air 04/04/17 07:07 37.2 85 18 129/80 (96) 97 Room Air 04/03/17 23:35 Room Air 04/03/17 22:55 37.3 97 16 120/77 (91) 99 Room Air 04/03/17 21:04 Room Air 04/03/17 16:02 36.7 94 18 122/79 (93) 98 Room Air Physical Exam General Appearance: WD/WN, no apparent distress Eyes: normal inspection, sclerae normal ENT: normal ENT inspection, pharynx normal Neck: supple, no adenopathy, trachea midline Respiratory/Chest: chest non-tender, lungs clear, normal breath sounds, no respiratory distress Cardiovascular: regular rate, rhythm, no gallop, no murmur Abdomen: normal bowel sounds, non tender, soft, no organomegaly Extremities: non-tender, no calf tenderness Neurologic/Psychiatric: alert, oriented x 3 Skin: normal color, no rash, + pertinent finding (Left shoulder dressing intact ) Lymphatic: no adenopathy Laboratory Results RUN DATE: 04/04/17 [facility] LAB PAGE 1 RUN TIME: 1242 Specimen Inquiry PATIENT: ARGENIS BROWN LOC: [facility] U # : [id number] AGE/SX: 61/M ROOM: [facility] REG : 04/02/[address]: Aren Vanegas M.D. : 1955 BED: 1 DIS : STATUS: ADM IN TLOC: SPEC #: [id number] GISELA: 04/02/17 STATUS: RES REQ #: [id number] RECD: 04/02/[address]: Aren Vanegas M.D. SOURCE: DRAIN-DEEP ENTR: 04/02/[address]: River Lopez III, M.D. SPDESC: SHOULDER,L ORDERED: AER/CARLY CULTSMR Procedure Result Verified Site GRAM STAIN Final 04/03/17-6275 RESULT MANY POLYS FEW GRAM POSITIVE COCCI OR AER/CARLY CULT Preliminary 04/04/17-1242 Organism 1 STAPHYLOCOCCUS AUREUS QUANITY MANY SENS SENSITIVITY TO FOLLOW 1. STAPHYLOCOCCUS AUREUS Target Route Dose RX AB Cost M.I.C. IQ ------ ----- ------ -- ------ -------- - ------ TRIMET/SULFA S <=0.5/ 9.5 * OXACILLIN S 0.5 VANCOMYCIN S 2 ERYTHROMYCIN S <=0.5 TETRACYCLINE S <=4 CLINDAMYCIN S <=0.5 DAPTOMYCIN S 1 S = SENSITIVE I = INTERMEDIATE R = RESISTANT Last 24 Hours Test 04/04/17 03:59 White Blood Count 7.22 K/uL Red Blood Count 3.75 M/uL Hemoglobin 12.9 g/dL Hematocrit 37.9 % Mean Corpuscular Volume 101.1 fL Mean Corpuscular Hemoglobin 34.4 pg Mean Corpuscular Hemoglobin Concent 34.0 g/dl RDW Standard Deviation 49.2 fL RDW Coefficient of Variation 13.2 % Platelet Count 205 K/uL Mean Platelet Volume 10.5 fL Sodium Level 133 mmol/L Potassium Level 4.0 mmol/L Chloride Level 99 mmol/L Carbon Dioxide Level 28 mmol/L Anion Gap 6.0 mmol/L Blood Urea Nitrogen 12 mg/dl Creatinine 0.95 mg/dl Est Creatinine Clear Calc Drug Dose 96.4 ml/min Estimated GFR () 101.1 Estimated GFR (Non- 87.3 BUN/Creatinine Ratio 12.1 Random Glucose 104 mg/dl Calcium Level 8.9 mg/dl Vancomycin Level Trough 11.0 mcg/ml Assessment and Plan 61-year-old male with infection of left shoulder following repair of rotator cuff tear with graft placement with cultures all growing methicillin sensitive Staph aureus. Given penicillin allergy, vancomycin appropriate for now, would consider use of daptomycin 6 milligrams/kilogram daily to allow easier outpatient therapy. Will likely need in the range of 6 weeks of IV antibiotics. Will follow.
--- NOTE | 2017-04-04 14:18 | Pharmacy Progress Note ---
Pharmacy Abx Dose Short Note Date of Service Apr 04, 2017. Assessment & Plan Assessment * 61 year old male receiving IV Vancomycin for treatment of L shoulder infection * Day #3 of antimicrobial therapy. * Needle aspirate and deep drainage cultures are all growing MSSA. * Patient has been afebrile, WBC 10.1-->7.2 * Vanc level was obtained this am (11.0mcg/mL) and was slightly subtherapeutic Plan Vancomycin * Change to Vancomycin 1250 mg IV every 8 hours * Goal trough level for SSTI, vanc NAY 2: 15 to 20 mcg/mL * Trough level ordered for: 04/05 prior to the dose due at 1200 * Would recommend de-escalation of abx therapy, in light of cx results, but will defer to ID service for abx selection. Pharmacy will continue to follow and will adjust dose/frequency as necessary. Thank you.
[2017-04-04 15:27] VITALS: BP 116/80; PULSE 90; TEMP 36.8; O2SAT 97
[2017-04-04] MEDS ORDERED: DAPT500I IV (16:18)
[2017-04-04] MEDS: D5W AND 1/2NSS + 20MEQ KCL 1,000 ML IV SCH (17:03)
[2017-04-04] MEDS ORDERED: NURSING VERBAL MED ORDER ONE ×2 (18:00→20:45)
[2017-04-04] MEDS: DAPTOmycin IV 550 MG in SYRINGE 0 ML IV SCH (18:06)
[2017-04-04] MEDS: ZOLPIDEM TARTRATE 5 MG TAB PO PRN (20:43)
[2017-04-04 23:02] VITALS: BP 105/71; PULSE 91; TEMP 37; O2SAT 97
[2017-04-04 23:55] VITALS: O2SAT 97
[2017-04-05] MEDS: ACETAMINOPHEN 500 MG TAB PO SCH ×3 (05:46→21:17)
[2017-04-05 07:03] VITALS: BP 125/84; PULSE 80; TEMP 36.9; O2SAT 97
[2017-04-05 07:54] VITALS: O2SAT 97
[2017-04-05] MEDS: DOCUSATE SODIUM 100 MG CAP PO SCH ×2 (08:29→21:16)
[2017-04-05] MEDS: OXYCODONE HCL IR 5 MG TAB (IMMEDIATE RELEASE) PO PRN (08:29)
[2017-04-05] MEDS: MULTIVITAMIN TAB PO SCH (08:29)
[2017-04-05] MEDS: BuPROPion XL 150 MG TABCR PO SCH ×2 (08:30→21:16)
[2017-04-05] MEDS: LISINOPRIL 10 MG TAB PO SCH (08:30)
[2017-04-05] MEDS ORDERED: DAPTOmycin IV 550 MG in SODIUM CHLORIDE 0.9% 50ML 50 ML IV SCH (09:00)
--- NOTE | 2017-04-05 09:19 | Orthopedic Progress Note ---
Orthopedic Progress Note Date of Service Apr 05, 2017. Subjective Post OP Day: 3 Reports: feeling well Objective N/V intact, dressing C/D/I (Per pt and nurse, pt had a moderate amount of purulent drainage on dressing when changed earlier this AM) Date Time Temp Pulse Resp B/P (MAP) Pulse Ox O2 Delivery O2 Flow Rate FiO2 04/05/17 07:03 36.9 80 19 125/84 (98) 97 Room Air 04/04/17 23:55 97 Room Air 04/04/17 23:02 37.0 91 18 105/71 (82) 97 Room Air 04/04/17 15:30 Room Air 04/04/17 15:27 36.8 90 18 116/80 (92) 97 Room Air Assessment & Plan Assessment: POD #, Left shoulder I&D subacromial and subdeltoid infection, placement of antibx beads and closure over drains...s/p open left RCR with grafting 2 wks ago.staph aureus angel sensitive Plan: On Daptomycin, will need 6 weeks iv abx.and possibly suppressive antibiotics for total of 6 months until rotator cuff heals. Disposition - home w/ IV abx, possibly tomorrow pending eval of wound drainage Attending Addendum: I have seen and examined the patient, and agree with SUMMER Sheppard's assessment and plan. Dressings changed on evening rounds, still with significant expressible purulent drainage. Plan for repeat I&D tomorrow. NPO for surgery. Avni Kraft MD Orthopaedic Surgery Inhouse Planning Pain Management: PO Tylenol, Oxy IR Discharge Planning Discharge Planning: home
[2017-04-05] MEDS ORDERED: VANCOMYCIN TROUGH ONE (11:30)
[2017-04-05 15:13] VITALS: BP 145/89; PULSE 97; TEMP 36.9; O2SAT 97
[2017-04-05] MEDS: DAPTOmycin IV 550 MG in SYRINGE 0 ML IV SCH (18:14)
[2017-04-05] MEDS: ZOLPIDEM TARTRATE 5 MG TAB PO PRN (21:20)
[2017-04-05 23:12] VITALS: BP 123/79; PULSE 82; TEMP 37; O2SAT 97
[2017-04-05 23:22] VITALS: O2SAT 97
[2017-04-06] VITALS (10 sets, daily range): BP systolic 92–131; BP diastolic 62–89; PULSE 84–104; TEMP 36.4–36.9; O2SAT 96–99
[2017-04-06] MEDS: ACETAMINOPHEN 500 MG TAB PO SCH ×3 (05:40→21:49)
[2017-04-06] MEDS: MULTIVITAMIN TAB PO SCH (08:19)
[2017-04-06] MEDS: DOCUSATE SODIUM 100 MG CAP PO SCH ×2 (08:19→21:49)
[2017-04-06] MEDS: LISINOPRIL 10 MG TAB PO SCH (08:19)
[2017-04-06] MEDS: BuPROPion XL 150 MG TABCR PO SCH ×2 (08:19→21:48)
[2017-04-06] MEDS ORDERED: MEPERIDINE HCL 25 MG/ML CARP IV PRN (10:45)
[2017-04-06] MEDS ORDERED: EpHEDrine SULFATE INJ 50 MG/ML AMP IV PRN (10:45)
[2017-04-06] MEDS ORDERED: LABETALOL HCL IV 5 MG/ML 20ML IV PRN (10:45)
[2017-04-06] MEDS ORDERED: ATROPINE SULFATE 0.1 MG/ML 5ML SYR IV PRN (10:45)
[2017-04-06] MEDS ORDERED: ONDANSETRON INJ 2 MG/ML 2 ML VIAL IV PRN (10:45)
[2017-04-06] MEDS ORDERED: HYDROmorphone INJ 1 MG/ML SYR IV PRN (10:45)
[2017-04-06] MEDS ORDERED: FENTANYL CITRATE INJ 50 MCG/1 ML 2 ML VIAL IV PRN (10:45)
[2017-04-06] MEDS ORDERED: MIDAZOLAM HCL 1 MG/ML 2ML VIAL ONE (14:22)
[2017-04-06] MEDS ORDERED: FENTANYL CITRATE INJ 50 MCG/1 ML 2 ML VIAL ONE ×3 (14:22→16:45)
[2017-04-06] MEDS ORDERED: BACITRACIN 50000 UNIT VIAL ONE (14:23)
--- NOTE | 2017-04-06 14:37 | History & Physical Bridge Note ---
H&P Re-Evaluation Bridge Note: I have examined the patient, reviewed the History & Physical and in the interval since the performance of the History & Physical I have noted the following changes of clinical significance: No changes noted
[2017-04-06] MEDS ORDERED: LIDOCAINE HCL 2% 2 ML VIAL (20MG/ML) ONE (15:03)
[2017-04-06] MEDS ORDERED: PROPOFOL IV EMULSION 10 MG/ML 20 ML VIAL IV ONE (15:03)
[2017-04-06] MEDS ORDERED: ONDANSETRON INJ 2 MG/ML 2 ML VIAL ONE (15:03)
[2017-04-06] MEDS ORDERED: PHENYLEPHRINE HCL INJ 10 MG/ML VIAL ONE (15:05)
[2017-04-06] MEDS ORDERED: HYDROmorphone INJ 2 MG/ML SYR/VIAL ONE (15:53)
--- NOTE | 2017-04-06 17:03 | [facility] Operative Report ---
Operative Report Operative Date Apr 06, 2017. Pre-Operative Diagnosis Left Shoulder Post Operative Infection Post-Operative Diagnosis Same Procedure(s) Performed 1. Irrigation and debridement of left shoulder postoperative infection, including skin, deep fascia, and muscle (20400) 2. Deep hardware removal (23602) Surgeon Dr. Kraft Alley Cleaner Surgeon(s) None Estimated Blood Loss 30 ml Findings Gross purulence, failure of previous revision rotator cuff repair. Specimens None per Surgeon Drains Medium Hemovac Anesthesia general Complication(s) None Disposition Recovery Room / PACU Indications Mr. Morton is a 61 year old patient of Dr. Vanegas's with a persistent, recurrent left shoulder postoperative infection. He originally had a revision rotator cuff repair with placement of Arthrex dermal graft for augmentation of the cuff repair completed in early March by Dr. Vanegas. He then developed a postoperative infection. He recently underwent an irrigation and debridement surgery by Dr. Vanegas on April 02. At that time, per his operative report, the rotator cuff repair was intact. He placed Stimulan vancomycin impregnated cement beads in the surgical wound. He is also been on IV antibiotics including daptomycin. Despite all this, he had persistent, copious purulent drainage from his surgical wound. The decision was made to take him back to the operating room for repeat irrigation and debridement. Description of Procedure Mr Morton was identified in the preoperative holding area. Operative extremity was marked. He was then brought back to the operating room and placed supine on the operating room table. General anesthesia was induced without complication. No additional IV antibiotics were given, as he was receiving scheduled IV daptomycin. He was then placed in the beachchair position. Previous surgical skin sutures were removed. Left shoulder and arm were then prepped and draped in standard sterile fashion using Betadine prep. I then reopened his surgical incision with a #10 blade. Previous subcutaneous and deep sutures in the deltoid were removed as they were encountered. I then entered the subacromial space, where there was copious gross purulent material. This is a combination of pus and debris from his previously placed antibiotic- impregnated cement beads. I removed all palpable remnants of the antibiotic cement beads throughout the subacromial space. I then palpated and inspected the rotator cuff repair. The dermal graft augmentation was visible, but I could easily palpate into the glenohumeral joint space just past this. I could palpate the edge of the rotator cuff, which had obviously retracted medially about to the level of the glenoid. There was an obvious large rent and failure of the previous rotator cuff repair. There was no intact tissue between the dermal augmentation graft and his sun'aq rotator cuff. I therefore felt that at this point the dermal augmentation graft was not serving any purpose, but was likely a persistent nidus of infection. I therefore decided to remove it. The nonabsorbable sutures that were holding the graft in place were removed and the dermal graft was removed in total. I was able to remove one of the medial row anchors that was holding this in place, but I encountered 3 lateral row anchors that I could not easily remove. All the nonabsorbable suture that was encountered was removed. After I felt I had removed all foreign material that was contributing to his persistent infection, I then copiously irrigated the wound with 6 L of sterile saline via gravity irrigation. I was then satisfied with the irrigation and debridement. I then placed a Hemovac drain deep in the wound, and sewed it in place with 3-0 Prolene suture. I then closed the deep fascia and deltoid muscle with 0 PDS suture. Subcutaneous tissue was also closed with 2-0 PDS suture. Skin was closed with 3-0 Prolene. Sterile dressings were then applied with Xeroform, sterile gauze, ABDs pads, and foam tape. Drapes were removed, the patient was awakened from general anesthesia, transferred to the stretcher, and taken to the postanesthesia care unit in stable condition. There were no immediate complications from the procedure. I was present and scrubbed for the entire procedure. I attest to the content of the Intraoperative Record and any orders documented therein. Any exceptions are noted below.
[2017-04-06] MEDS: DAPTOmycin IV 550 MG in SYRINGE 0 ML IV SCH (18:44)
[2017-04-06] MEDS: OXYCODONE HCL IR 5 MG TAB (IMMEDIATE RELEASE) PO PRN (21:57)
[2017-04-06] MEDS: ZOLPIDEM TARTRATE 5 MG TAB PO PRN (23:49)
[2017-04-07] VITALS (7 sets, daily range): BP systolic 106–139; BP diastolic 66–81; PULSE 83–98; TEMP 36.7–37.2; O2SAT 97–100
[2017-04-07] MEDS: ACETAMINOPHEN 500 MG TAB PO SCH ×3 (06:00→22:24)
[2017-04-07] MEDS: MULTIVITAMIN TAB PO SCH (09:05)
[2017-04-07] MEDS: DOCUSATE SODIUM 100 MG CAP PO SCH ×2 (09:05→22:24)
[2017-04-07] MEDS: BuPROPion XL 150 MG TABCR PO SCH ×2 (09:05→22:24)
[2017-04-07] MEDS: LISINOPRIL 10 MG TAB PO SCH (09:05)
--- NOTE | 2017-04-07 14:38 | Orthopedic Progress Note ---
Orthopedic Progress Note Date of Service Apr 07, 2017. Subjective Post OP Day: 1 Reports: feeling well, Denies: chest pain, SOB, nausea / vomiting, light headedness, calf pain Objective calves soft nontender, N/V intact, dressing C/D/I, A&O x3, toes mobile, hemovac drainage (0 output. serous drainage in tubing.) Date Time Temp Pulse Resp B/P (MAP) Pulse Ox O2 Delivery O2 Flow Rate FiO2 04/07/17 12:00 36.9 97 16 106/73 (84) 97 Room Air 04/07/17 08:00 100 Room Air 04/07/17 07:11 36.7 87 17 139/78 (98) 100 Room Air 04/07/17 03:21 36.8 83 18 128/79 (95) 99 Room Air 04/06/17 23:44 98 Room Air 04/06/17 23:07 36.9 90 18 115/75 (88) 98 Room Air 04/06/17 21:13 90 98/62 (74) 97 04/06/17 20:42 36.6 104 18 92/62 (72) 96 Room Air 04/06/17 19:29 36.7 104 18 109/70 (83) 96 Room Air 04/06/17 18:34 36.5 92 18 127/85 (99) 99 Room Air 04/06/17 17:55 36.4 84 18 109/79 (89) 98 Nasal Cannula 2.0 04/06/17 17:25 Nasal Cannula 2.0 04/06/17 17:25 99 Nasal Cannula 2.0 04/06/17 17:25 36.7 87 16 131/89 (103) 99 Nasal Cannula 2.0 04/06/17 17:10 36.5 81 16 106/87 97 Nasal Cannula 2 04/06/17 17:00 36.5 78 16 111/76 94 Nasal Cannula 2 04/06/17 16:50 84 16 110/83 94 Nasal Cannula 2 04/06/17 16:40 90 16 94/78 100 Oxymask 10 04/06/17 16:30 88 16 106/81 100 Oxymask 10 04/06/17 16:21 36.3 86 16 93/67 100 Oxymask 10 Assessment & Plan Assessment: POD #1, Left shoulder I&D subacromial and subdeltoid infection x 2. placement of antibx beads and closure over drains...s/p open left RCR with grafting 2 wks ago.staph aureus angel sensitive Plan: On Daptomycin, will need 6 weeks iv abx.and possibly suppressive antibiotics for total of 6 months until rotator cuff heals. Disposition - home w/ IV abx, possibly tomorrow pending eval of wound drainage DRESSING CHANGE AND HEMOVAC DC TOMORROW LIKELY DC HOME ON IVS IF WOUND IMPROVING. PAIN MANAGEMENT PICC LINE PLACED Inhouse Planning Pain Management: PO Tylenol, Oxy IR Discharge Planning Discharge Planning: home
[2017-04-07] MEDS: DAPTOmycin IV 550 MG in SYRINGE 0 ML IV SCH (17:55)
--- NOTE | 2017-04-07 20:45 | Infectious Disease Progress Nt ---
Progress Note Date of Service Apr 07, 2017. Subjective Pt evaluation today including: conversation w/ patient, physical exam, chart review, lab review, review of studies, conversation w/ dairy feed sales consultant, review of inpatient medication list Patient now status post repeat I and D of left shoulder. Expected postoperative pain. No fever. Tolerating antibiotic without apparent difficulty All Other Systems: Reviewed and Negative Medications Current Inpatient Medications Medications (Trade) Dose Ordered Sig/Jennifer Route Start Time Stop Time Status Last Admin Dose Admin Diphenhydramine HCl (Benadryl Cap) 25 mg Q8 PRN PO 04/02/17 19:30 05/02/17 19:29 Ondansetron HCl (Zofran Inj) 4 mg Q6H PRN IV 04/02/17 19:30 05/02/17 19:29 Al Hydroxide/Mg Hydroxide (Maalox Susp) 30 ml Q4H PRN PO 04/02/17 19:30 05/02/17 19:29 Miscellaneous Medication (No Nsaids) 1 ea UD N/A 04/02/17 19:30 05/02/17 19:29 Oxycodone HCl (Roxicodone Immediate Rel Tab) `1-2 TABS FOR PAIN `1 TAB... Q4H PRN PO 04/02/17 19:30 04/16/17 19:29 04/06/17 21:57 10 MG Acetaminophen (Tylenol Tab) 1,000 mg Q8 PO 04/02/17 22:00 05/02/17 21:59 04/07/17 14:08 1,000 MG Magnesium Hydroxide (Milk Of Magnesia Susp) 30 ml Q6H PRN PO 04/02/17 19:30 05/02/17 19:29 Docusate Sodium (coLACE CAP) 100 mg BID PO 04/02/17 21:00 05/02/17 20:59 04/07/17 09:05 100 MG Multivitamins (Multivitamin Tab) 1 tab DAILY PO 04/03/17 09:00 05/03/17 08:59 04/07/17 09:05 1 TAB Bupropion HCl (Wellbutrin-Xl Tab) 150 mg BID PO 04/02/17 21:00 05/02/17 20:59 04/07/17 09:05 150 MG Lisinopril (Zestril Tab) 10 mg DAILY PO 04/03/17 09:00 05/03/17 08:59 04/07/17 09:05 10 MG Zolpidem Tartrate (Ambien Tab) 5 mg HSZ PRN PO 04/03/17 19:15 05/03/17 19:14 04/06/17 23:49 5 MG Heparin Sodium (Porcine) (Heparin 10 Unit/ ml 5 ml Flush) 5 ml PRN PRN FLUSH 04/04/17 13:15 05/04/17 13:14 04/07/17 17:55 5 ML Daptomycin 550 mg/ Syringe 11 ml @ 5.5 mls/min Q24H IV 04/04/17 18:00 05/16/17 17:59 04/07/17 17:55 5.5 MLS/MIN Objective Vital Signs Date Time Temp Pulse Resp B/P (MAP) Pulse Ox O2 Delivery O2 Flow Rate FiO2 04/07/17 19:17 37.2 98 18 108/72 (84) 97 Room Air 04/07/17 14:52 37.0 95 18 106/66 (79) 97 Room Air 04/07/17 12:00 36.9 97 16 106/73 (84) 97 Room Air 04/07/17 08:00 100 Room Air 04/07/17 07:11 36.7 87 17 139/78 (98) 100 Room Air 04/07/17 03:21 36.8 83 18 128/79 (95) 99 Room Air 04/06/17 23:44 98 Room Air 04/06/17 23:07 36.9 90 18 115/75 (88) 98 Room Air 04/06/17 21:13 90 98/62 (74) 97 Physical Exam General Appearance: WD/WN, no apparent distress Eyes: normal inspection, sclerae normal ENT: normal ENT inspection, pharynx normal Neck: supple, no adenopathy, trachea midline Respiratory/Chest: chest non-tender, lungs clear, normal breath sounds, no respiratory distress Cardiovascular: regular rate, rhythm, no gallop, no murmur Abdomen: normal bowel sounds, non tender, soft, no organomegaly Extremities: non-tender, no calf tenderness, normal capillary refill Neurologic/Psychiatric: alert, normal mood/affect, oriented x 3 Skin: normal color, warm/dry, no rash, + pertinent finding (Dressing intact left shoulder) Lymphatic: no adenopathy Assessment and Plan 61-year-old male with infection of left shoulder following repair of rotator cuff tear with graft placement with cultures all growing methicillin sensitive Staph aureus. Given penicillin allergy ,Daptomycin appropriate therapy, will likely require in the range of 6 weeks of IV antibiotics. Will discuss with all involved. Will continue to follow.
[2017-04-07] MEDS: ZOLPIDEM TARTRATE 5 MG TAB PO PRN (22:24)
[2017-04-08] MEDS: ACETAMINOPHEN 500 MG TAB PO SCH ×2 (05:24→13:40)
[2017-04-08 07:07] VITALS: BP 117/81; PULSE 93; TEMP 36.8; O2SAT 99
[2017-04-08] MEDS: BuPROPion XL 150 MG TABCR PO SCH (08:41)
[2017-04-08] MEDS: DOCUSATE SODIUM 100 MG CAP PO SCH (08:41)
[2017-04-08] MEDS: MULTIVITAMIN TAB PO SCH (08:41)
[2017-04-08] MEDS: LISINOPRIL 10 MG TAB PO SCH (08:41)
[2017-04-08] MEDS ORDERED: RXC5 PO (13:10)
[2017-04-08] MEDS ORDERED: ASPEC325 PO (13:10)
--- NOTE | 2017-04-08 13:19 | Discharge Instructions ---
Discharge Instructions Date of Service Apr 08, 2017. Admission Reason for Admission: Postoperative Infection Discharge Discharge Diagnosis / Problem: Left Shoulder Infection s/p Left RTC repair Discharge Goals Goal(s): Decrease discomfort, Improve function, Increase independence Activity Recommendations Activity Limitations: per Instructions/Follow-up section . Instructions / Follow-Up Instructions / Follow-Up DAILY DRESSING CHANGES GENTLE ROM OF THE SHOULDER IS ALLOWED NO TUB BATHS; DO NOT SOAK WOUND. YOU MAY SHOWER IF YOU HAVE NO DRAINAGE FROM THE WOUND, OTHERWISE DO NOT GET THE WOUND WET. USE SLING FOR COMFORT ICE TO THE SHOULDER NEEDED YOU WILL BE NEEDING WEEKLY BLOOD DRAWS THAT WILL BE DONE BY HOME HEALTH SERVICES. THEY WILL ALSO TAKE CARE OF YOUR PICC LINE AND IV ANTIBIOTICS. FOLLOW UP WITH DR ALMEIDA IN 7-10 DAYS. PLEASE CALL FOR APPOINTMENT. [phone] LANE IN 10-14 DAYS. PLEASE CALL FOR APPOINTMENT. [phone] Current Hospital Diet Patient's current hospital diet: Regular Diet Discharge Diet Recommended Diet: Regular Diet Procedures Procedures Performed: Incision and Drainage Left Shoulder Pending Studies Studies pending at discharge: no Medical Emergencies . Who to Call and When: Medical Emergencies: If at any time you feel your situation is an emergency, please call 911 immediately. . Non-Emergent Contact Non-Emergency issues call your: Surgeon Call Non-Emergent contact if: temperature is above 101.5, your pain is not controlled, your pain is worsening, wound has increased drainage, wound has increased redness . "Provider Documentation" section prepared by Roberto Carlos Quispe. . VTE Core Measure Inpt VTE Proph given/why not?: Dagoberto Mackenzie, SCD's [place] Drug Monitoring Program Search Results: patient reviewed within database, no issues identified
[2017-04-08 13:41] VITALS: BP 117/81; PULSE 93; TEMP 36.8; O2SAT 99
--- NOTE | 2017-04-08 13:43 | Orthopedic Progress Note ---
Orthopedic Progress Note Date of Service Apr 08, 2017. Subjective Post OP Day: 2 Reports: feeling well, Denies: complaints Objective Dressing removed. Drain taken out without difficulty. Scant serous drainage from the drain site. Main wound looks good today. Minimal erythema and no purulence. Date Time Temp Pulse Resp B/P (MAP) Pulse Ox O2 Delivery O2 Flow Rate FiO2 04/08/17 07:30 Nasal Cannula 04/08/17 07:07 36.8 93 16 117/81 (93) 99 Room Air 04/08/17 00:03 Room Air 04/07/17 22:48 37.0 93 15 123/81 (95) 98 Room Air 04/07/17 19:17 37.2 98 18 108/72 (84) 97 Room Air 04/07/17 15:50 Room Air 04/07/17 14:52 37.0 95 18 106/66 (79) 97 Room Air Assessment & Plan Assessment: POD #2, Left shoulder I&D subacromial and subdeltoid infection x 2. placement of antibx beads and closure over drains...s/p open left RCR with grafting 2 wks ago.staph aureus angel sensitive Plan: On Daptomycin, will need 6 weeks iv abx.and possibly suppressive antibiotics for total of 6 months until rotator cuff heals. Disposition - Home today Inhouse Planning Pain Management: PO Tylenol, Oxy IR Discharge Planning Discharge Planning: home Pain Management: Oxy IR DVT Prophylaxis: ASA
[2017-04-08] MEDS: DAPTOmycin IV 550 MG in SYRINGE 0 ML IV SCH (14:34)
--- NOTE | 2017-04-08 14:49 | Infectious Disease Progress Nt ---
Progress Note Date of Service Apr 08, 2017. Subjective Pt evaluation today including: conversation w/ patient, physical exam, chart review, lab review, review of studies, conversation w/ data processing systems consultant, review of inpatient medication list Patient feeling better today. Much less drainage from left shoulder. No fever chills. Tolerating antibiotics without apparent difficulty. All Other Systems: Reviewed and Negative Medications Current Inpatient Medications Medications (Trade) Dose Ordered Sig/Jennifer Route Start Time Stop Time Status Last Admin Dose Admin Diphenhydramine HCl (Benadryl Cap) 25 mg Q8 PRN PO 04/02/17 19:30 05/02/17 19:29 Ondansetron HCl (Zofran Inj) 4 mg Q6H PRN IV 04/02/17 19:30 05/02/17 19:29 Al Hydroxide/Mg Hydroxide (Maalox Susp) 30 ml Q4H PRN PO 04/02/17 19:30 05/02/17 19:29 Miscellaneous Medication (No Nsaids) 1 ea UD N/A 04/02/17 19:30 05/02/17 19:29 Oxycodone HCl (Roxicodone Immediate Rel Tab) `1-2 TABS FOR PAIN `1 TAB... Q4H PRN PO 04/02/17 19:30 04/16/17 19:29 04/06/17 21:57 10 MG Acetaminophen (Tylenol Tab) 1,000 mg Q8 PO 04/02/17 22:00 05/02/17 21:59 04/08/17 13:40 1,000 MG Magnesium Hydroxide (Milk Of Magnesia Susp) 30 ml Q6H PRN PO 04/02/17 19:30 05/02/17 19:29 Docusate Sodium (coLACE CAP) 100 mg BID PO 04/02/17 21:00 05/02/17 20:59 04/08/17 08:41 100 MG Multivitamins (Multivitamin Tab) 1 tab DAILY PO 04/03/17 09:00 05/03/17 08:59 04/08/17 08:41 1 TAB Bupropion HCl (Wellbutrin-Xl Tab) 150 mg BID PO 04/02/17 21:00 05/02/17 20:59 04/08/17 08:41 150 MG Lisinopril (Zestril Tab) 10 mg DAILY PO 04/03/17 09:00 05/03/17 08:59 04/08/17 08:41 10 MG Zolpidem Tartrate (Ambien Tab) 5 mg HSZ PRN PO 04/03/17 19:15 05/03/17 19:14 04/07/17 22:24 5 MG Heparin Sodium (Porcine) (Heparin 10 Unit/ ml 5 ml Flush) 5 ml PRN PRN FLUSH 04/04/17 13:15 05/04/17 13:14 04/07/17 17:55 5 ML Daptomycin 550 mg/ Syringe 11 ml @ 5.5 mls/min Q24H IV 04/04/17 18:00 05/16/17 17:59 04/08/17 14:34 5.5 MLS/MIN Objective Vital Signs Date Time Temp Pulse Resp B/P (MAP) Pulse Ox O2 Delivery O2 Flow Rate FiO2 04/08/17 13:41 36.8 93 16 99 Room Air 04/08/17 07:30 Nasal Cannula 04/08/17 07:07 36.8 93 16 117/81 (93) 99 Room Air 04/08/17 00:03 Room Air 04/07/17 22:48 37.0 93 15 123/81 (95) 98 Room Air 04/07/17 19:17 37.2 98 18 108/72 (84) 97 Room Air 04/07/17 15:50 Room Air 04/07/17 14:52 37.0 95 18 106/66 (79) 97 Room Air Physical Exam General Appearance: WD/WN, no apparent distress Eyes: normal inspection, EOMI, funduscopic exam normal ENT: normal ENT inspection, pharynx normal Neck: supple, no adenopathy, thyroid normal, trachea midline Respiratory/Chest: chest non-tender, lungs clear, normal breath sounds, no respiratory distress Cardiovascular: regular rate, rhythm, no gallop, no murmur Abdomen: normal bowel sounds, non tender, soft, no organomegaly Extremities: non-tender, no calf tenderness Neurologic/Psychiatric: alert, oriented x 3 Skin: normal color, no rash, + pertinent finding (Dressing dry and intact left shoulder) Lymphatic: no adenopathy Assessment and Plan 61-year-old male with infection of left shoulder following repair of rotator cuff tear with graft placement with cultures all growing methicillin sensitive Staph aureus. Given penicillin allergy ,Daptomycin appropriate therapy, will likely require in the range of 6 weeks of IV antibiotics. Need to follow CPK levels while on daptomycin therapy. Will discuss.
--- NOTE | 2017-04-10 14:08 | Anesthesiology Progress Note ---
Anesthesia Post Op Note Date & Time Apr 10, 2017 at 14:07 Vital Signs Pain Intensity: 0.0 Notes Mental Status: alert / awake / arousable, participated in evaluation Pt Amnestic to Procedure: Yes Nausea / Vomiting: adequately controlled Pain: adequately controlled Airway Patency, RR, SpO2: stable & adequate BP & HR: stable & adequate Hydration State: stable & adequate Anesthetic Complications: no major complications apparent Review of EMR at this time indicates that pt reported no anesthesia related complaints or complications
== END 2017-04-08 15:00 | disposition home health service (06) | DRG 858 ==
LOC: C.ACU 16:54 → ENRESERV 19:38 → C.MSW 19:42
PROVIDERS: ADMIT Orthopaedic Surgery Sports Medicine; ATTEND Orthopaedic Surgery Sports Medicine
PROC: 0J9F3ZZ Drainage of Left Upper Arm Subcutaneous Tissue and Fascia, Percutaneous Approach (ICD-10-PCS; principal; 2017-04-02 11:00)
PROC: 3E02329 Introduction of Other Anti-infective into Muscle, Percutaneous Approach (ICD-10-PCS; principal; 2017-04-02 11:00)
PROC: 02HV33Z Insertion of Infusion Device into Superior Vena Cava, Percutaneous Approach (ICD-10-PCS; 2017-04-04)
PROC: 0LP Tendons, Removal (ICD-10-PCS; 2017-04-06)
DX: T81.4XXA Infection following a procedure, initial encounter (principal); L08.9 Local infection of the skin and subcutaneous tissue, unspecified; B95.61 Methicillin susceptible Staphylococcus aureus infection as the cause of diseases classified elsewhere; I10 Essential (primary) hypertension; F41.9 Anxiety disorder, unspecified; Z79.899 Other long term (current) drug therapy; Z87.891 Personal history of nicotine dependence; Z98.890 Other specified postprocedural states; Z88.0 Allergy status to penicillin; Y83.8 Other surgical procedures as the cause of abnormal reaction of the patient, or of later complication, without mention of misadventure at the time of the procedure

== ENCOUNTER → 2017-04-02 | Outpatient (CLI) | payer OTHER ==
[~2017-04-02] MED LIST: BUPRTAB PO; LISI-461 PO; MELO15TA4 PO; OXYC-57 PO
[2017-04-02 14:26] LABS: BASO % 0.1 %; BASO ABS # 0.01 K/uL (0-0.2); EOS % 0.3 %; EOS ABS # 0.03 K/uL (0-0.5); HEMATOCRIT 40.4 % (42-52); HEMOGLOBIN 13.7 g/dL (14.0-18.0); IG# 0.02 K/uL (0.00-0.02); LYMPH % 6.2 %; LYMPH ABS # 0.67 K/uL (1.2-3.4); MEAN CELL VOLUME 101.3 fL (80-100); MEAN CORPUSCULAR HEMOGLOBIN 34.3 pg (25-34); MEAN CORPUSCULAR HGB CONC 33.9 g/dl (32-36); MEAN PLATELET VOLUME 11.8 fL (7.4-10.4); MONO % 7.8 %; MONO ABS # 0.84 K/uL (0.11-0.59); NEUT % 85.4 %; NEUT ABS # 9.21 K/uL (1.4-6.5); PLATELET COUNT 190 K/uL (130-400); RED CELL DISTRIBUTION WIDTH CV 13.2 % (11.5-14.5); RED CELL DISTRIBUTION WIDTH SD 49.3 fL (36.4-46.3); WHITE BLOOD COUNT 10.78 K/uL (4.8-10.8)
--- NOTE | 2017-04-02 16:28 | History and Physical ---
History & Physical Date Apr 02, 2017. Chief Complaint left shoulder wound infection History of Present Illness The patient is a 61 year old male with complaints of acute drainage of postop shoulder repair incision with purulent drainage and erythema Additional History Hepatic Disease: No Endocrine Disorder: No Kidney Disease: No Hypertension: Yes Heart Disease: No Bleeding Tendencies: No Infectious Diseases: No Other: seizure disorder as child resolved for decades ,was on dilantin Allergies Uncoded Allergies: DUST (Allergy, Unknown, 04/29/02) N (Allergy, Unknown, 04/29/02) PENICILLIN (Allergy, Unknown, 04/29/02) Home Medications Scheduled Bupropion Hcl (Wellbutrin Xl), 1 TAB PO BID Meloxicam (Mobic), 1 TAB PO BID Physical Examination Skin: warm/dry, no rash Eyes: normal inspection, EOMI, sclerae normal ENT: normal ENT inspection, pharynx normal Head: normocephalic, atraumatic Neck: supple, no adenopathy, trachea midline Respiratory/Chest: lungs clear, normal breath sounds, no respiratory distress Cardiovascular: regular rate, rhythm, no edema, no murmur Abdomen / GI: normal bowel sounds, non tender Back: normal inspection Extremities: + pertinent finding (erythema and drainage left shoulder incision) Neurologic/Psych: no motor/sensory deficits, alert, normal reflexes, oriented x 3 Diagnosis acute postop infection s/p rotator cuff repair with human dermal skin graft augmentation Plan of Treatment incision ,drainage and debridement,placement of drains or packing,admit for IV antibiotics
== END | disposition home or self-care (01) ==
LOC: C.LAB 13:34
PROVIDERS: ATTEND Orthopaedic Surgery Sports Medicine
DX: T81.4XXA Infection following a procedure, initial encounter (principal); Z98.890 Other specified postprocedural states; Y83.8 Other surgical procedures as the cause of abnormal reaction of the patient, or of later complication, without mention of misadventure at the time of the procedure; Z79.899 Other long term (current) drug therapy

== ENCOUNTER → 2017-04-18 | Outpatient (CLI) | payer OTHER ==
[~2017-04-18] MED LIST changes: +ASPEC325 PO; +DAPT500I IV; +LISI-461 PO; -MELO15TA4 PO; +RXC5 PO
--- NOTE | 2017-04-22 14:03 | CODING QUERY NO DIAGNOSIS ---
TREATMENT RENDERED WITHOUT A DIAGNOSIS To promote full compliance with coding requirements relating to patient care, physician participation is requested in all cases of bus and sys integration senior manager uncertainty. Please assist us with providing a diagnosis/symptom for the test(s) below: A diagnosis/symptom was not documented on your Order. A valid diagnosis/symptom is required to bill all insurances. Please remember that we are unable to code a diagnosis of rule out, probable, possible, questionable, or suspected. Tests that require a diagnosis: DOS: 04/18/17 * AERO/ANAE CULTURE & GRAM STAIN-LEFT SHOULDER DIAGNOSIS: Provider Signature: Date: Thank you Dione Lr [employer] Once completed, please kindly fax back to [phone] For questions please call [phone]
== END | disposition home or self-care (01) ==
LOC: C.LABSPEC 16:29
PROVIDERS: ATTEND Orthopaedic Surgery Sports Medicine
DX: M00.9 Pyogenic arthritis, unspecified (principal)

== ENCOUNTER → 2017-04-22 | Outpatient (CLI) | payer OTHER ==
[2017-04-22 12:22] LABS: HEMATOCRIT 36.5 % (42-52); HEMOGLOBIN 11.9 g/dL (14.0-18.0); MEAN CELL VOLUME 100.8 fL (80-100); MEAN CORPUSCULAR HEMOGLOBIN 32.9 pg (25-34); MEAN CORPUSCULAR HGB CONC 32.6 g/dl (32-36); MEAN PLATELET VOLUME 12.3 fL (7.4-10.4); PLATELET COUNT 212 K/uL (130-400); RED CELL DISTRIBUTION WIDTH CV 13.7 % (11.5-14.5); RED CELL DISTRIBUTION WIDTH SD 50.4 fL (36.4-46.3); WHITE BLOOD COUNT 7.83 K/uL (4.8-10.8)
[2017-04-22 12:41] LABS: BLOOD UREA NITROGEN 14 mg/dl (7-18); CARBON DIOXIDE 28 mmol/L (21-32); CREATININE 1.08 mg/dl (0.60-1.40); GLUCOSE 96 mg/dl (70-99); POTASSIUM 4.3 mmol/L (3.5-5.1); SODIUM 134 mmol/L (136-145)
[2017-04-22 12:42] LABS: ALT/SGPT 16 U/L (12-78)
[2017-04-22 12:44] LABS: ALKALINE PHOSPHATASE 85 U/L (45-117); AST/SGOT 18 U/L (15-37); TOTAL PROTEIN 7.1 gm/dl (6.4-8.2)
== END | disposition home or self-care (01) ==
LOC: C.LABSPEC 11:19
PROVIDERS: ATTEND Internal Medicine Infectious Disease
DX: Z51.81 Encounter for therapeutic drug level monitoring (principal); Z79.2 Long term (current) use of antibiotics

== ENCOUNTER → 2017-05-15 | Outpatient (CLI) | payer OTHER ==
[2017-05-15 17:42] LABS: HEMATOCRIT 40.2 % (42-52); HEMOGLOBIN 13.6 g/dL (14.0-18.0); MEAN CELL VOLUME 102.6 fL (80-100); MEAN CORPUSCULAR HEMOGLOBIN 34.7 pg (25-34); MEAN CORPUSCULAR HGB CONC 33.8 g/dl (32-36); MEAN PLATELET VOLUME 11.5 fL (7.4-10.4); PLATELET COUNT 229 K/uL (130-400); RED CELL DISTRIBUTION WIDTH CV 14.9 % (11.5-14.5); RED CELL DISTRIBUTION WIDTH SD 55.8 fL (36.4-46.3); WHITE BLOOD COUNT 3.84 K/uL (4.8-10.8)
[2017-05-15 17:46] LABS: ALBUMIN 3.6 gm/dl (3.4-5.0); ALT/SGPT 19 U/L (12-78); AST/SGOT 22 U/L (15-37); BLOOD UREA NITROGEN 15 mg/dl (7-18); CALCIUM 8.9 mg/dl (8.5-10.1); CARBON DIOXIDE 26 mmol/L (21-32); CREATININE 1.04 mg/dl (0.60-1.40); GLUCOSE 73 mg/dl (70-99); POTASSIUM 4.5 mmol/L (3.5-5.1); SODIUM 138 mmol/L (136-145)
[2017-05-15 17:48] LABS: ALKALINE PHOSPHATASE 80 U/L (45-117); TOTAL PROTEIN 7.9 gm/dl (6.4-8.2)
== END | disposition home or self-care (01) ==
LOC: C.LABSPEC 11:14
PROVIDERS: ATTEND Internal Medicine Infectious Disease
DX: T81.4XXA Infection following a procedure, initial encounter (principal); Y84.9 Medical procedure, unspecified as the cause of abnormal reaction of the patient, or of later complication, without mention of misadventure at the time of the procedure